=== PATIENT | male | born 1965 | race African-American/Black ===

== ENCOUNTER 2025-06-05 09:28 | Outpatient (REF) | payer MEDICAID, SELFPAY ==
--- NOTE | ~2025-06-05 | XR_ITS ---
EXAMINATION: XR SHOULDER, RIGHT CLINICAL INFORMATION: M25.511 - Pain in right shoulder COMPARISON: None available. TECHNIQUE: AP and Y-view projections of the right shoulder. FINDINGS: Subchondral cyst formation and volume loss of the glenohumeral joint. Exostosis/syndesmophyte formation, at coracoclavicular . Sclerosis and the articular surface of the acromioclavicular joint. No acute fracture or gross dislocation. XR/XR shoulder RT min 2V IMPRESSION: Moderate to severe degenerative changes, right shoulder. Possible associated with spondyloarthropathies. Electronically signed by: Cesar Tiwari MD 06/05/2025 02:24 PM EST
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
== END 2025-06-05 09:29 | disposition home or self-care (01) ==
LOC: HO.HOSX 09:28
PROVIDERS: Visit Provider Orthopaedic Surgery
DX: M54.2 Cervicalgia (principal); M25.511 Pain in right shoulder
CPT/HCPCS: 73030; 99202

== ENCOUNTER 2025-06-05 13:53 | Outpatient (AMB) | payer MEDICAID, SELFPAY ==
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
[2025-06-05 14:09] VITALS: BMI 26.4
== END 2025-06-05 14:25 | disposition home or self-care (01) ==
LOC: HO.HOS 13:53
PROVIDERS: Visit Provider Orthopaedic Surgery
DX: M54.2 Cervicalgia (principal)
CPT/HCPCS: 99203

== ENCOUNTER → 2025-06-05 14:00 | Outpatient (BNV) | payer MEDICAID, SELFPAY | PROVIDERS: Visit Provider Radiology Diagnostic Radiology | DX: M19.011 Primary osteoarthritis, right shoulder (principal) | CPT/HCPCS: 73030 ==

== ENCOUNTER 2025-07-04 07:51 | Outpatient (REF) | payer MEDICAID, SELFPAY ==
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
== END 2025-07-04 07:52 | disposition home or self-care (01) ==
LOC: HO.MRI 07:51
PROVIDERS: Visit Provider Orthopaedic Surgery
DX: M54.2 Cervicalgia (principal); M25.511 Pain in right shoulder; M25.611 Stiffness of right shoulder, not elsewhere classified; R20.2 Paresthesia of skin
CPT/HCPCS: 72141

== ENCOUNTER → 2025-07-04 07:58 | Outpatient (BNV) | payer MEDICAID, SELFPAY | PROVIDERS: Visit Provider Radiology Diagnostic Radiology | DX: M47.812 Spondylosis without myelopathy or radiculopathy, cervical region (principal) | CPT/HCPCS: 72141 ==

== ENCOUNTER 2025-07-15 09:09 | Outpatient (AMB) | payer MEDICAID, SELFPAY ==
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
[2025-07-15 09:16] VITALS: BMI 26.4
--- OUTSIDE RECORDS SUMMARY | 2025-07-15 11:30 | XMS_ITS | Clinical Summary ---
Author Organization [address] [facility] Address [address] [place] [address] Phone Care Team Providers Care Presser Hand Name Role Phone Kenton Grullon Primary Care Provider [phone] Allergies No known active allergies Medications amitriptyline [...] C Screening (01/27/2022) Hepatitis C Screening abstracted [facility] Provider HEALTH MAINTENANCE Final Result * HIV Screening (12/22/2021) Pathologist [facility] HIV Screening abstracted [facility] Provider HEALTH MAINTENANCE Final Result * Lipid panel (12/22/2021) Pathologist [facility] LDL/HDL Ratio 0 Comment:no interpretation, a bstracted Triglycerides 0 mg/dL Comment:no interpretation, a bstracted Cholesterol 0 mg/dL Comment:no interpretation, a bstracted HDL 0 mg/dL Comment:no interpretation, a bstracted LDL Cholesterol 0 mg/dL Comment:no interpretation, a bstracted Blood Venous blood specimen / Unknown [facility] Provider LAB BLOOD ORDERABLES Joceline l Result from Last 3 Months or Most Recently Relevant to Health Maintenance Insurance [place] Advance Directives Documents on File Type Date Recorded Patient Social Service Coordinator Expl anation Health Care Decision (hx) 07/08/2023 AD BONILLA DIRECTIVE Health Care Decision (hx) 07/08/2023 AD BONILLA DIRECTIVE Care Teams Presser Hand Relationship Specialty Start Date End Date Kenton Grullon PA [address] [place] [id number] PCP - General Physician Classroom Coordinator 06/05/24
== END 2025-07-15 10:08 | disposition home or self-care (01) ==
LOC: HO.HNS 09:10
PROVIDERS: Referring Provider Orthopaedic Surgery; Visit Provider Physician Assistant
DX: M54.2 Cervicalgia (principal); M48.02 Spinal stenosis, cervical region
CPT/HCPCS: 99204

== ENCOUNTER → 2025-07-15 09:09 | Outpatient (BNVA) | payer MEDICAID, SELFPAY | PROVIDERS: Visit Provider Physician Assistant | DX: Z48.811 Encounter for surgical aftercare following surgery on the nervous system (principal); M48.02 Spinal stenosis, cervical region | CPT/HCPCS: 99212 ==